=== PATIENT | female | born 1955 | race Caucasian/White ===

== ENCOUNTER 2018-12-12 06:05 | Inpatient (IN) ==
[2018-12-08 13:23] LABS: Appearance,Urine CLEAR; Bilirubin,Urine NEG (NEG); Color,Urine COLORLESS; Glucose,Urine (UA) NEGATIVE (NEG); Leukocyte Esterase,Urine NEG /uL (NEG); Protein,Urine NEG (NEG); Specific Gravity,Urine 1.004 (1.000-1.035); Urine Blood NEG mg/dL (<0.03); Urobilinogen,Urine NEG (NEG)
[2018-12-08 13:29] LABS: Blood Urea Nitrogen 12 mg/dl (8-23)
[2018-12-08 13:42] LABS: Estimated Average Glucose(eAG) 128 mg/dL; Hemoglobin A1C 6.1 % HGB (4.0-6.0)
[2018-12-08 13:49] LABS: Basophils # (Auto) 0.1 K/mcL (0.0-0.3); Basophils % (Auto) 1.2 % (0.0-2.0); Eosinophils # (Auto) 0.1 K/mcL (0.0-0.7); Eosinophils % (Auto) 2.3 % (0.0-7.0); Granulocytes % (Auto) 60.7 % (38.0-78.0); Lymphocytes # (Auto) 1.2 K/mcL (1.5-4.8); Lymphocytes % (Auto) 26.7 % (15.5-49.0); Mean Cell Volume 89.1 fL (80.0-100.0); Mean Corpuscular HGB Conc 33.5 g/dL (31.0-36.0); Monocytes # (Auto) 0.4 K/mcL (0.1-0.9); Monocytes % (Auto) 9.1 % (1.0-12.0); Platelet Count 271 K/mcL (140-440); RBC 5.06 M/mcL (4.00-5.20); Red Cell Distribution Width 14.3 % (11.5-14.5)
[~2018-12-12 06:05] MED LIST: ACETAMINOPHEN 500 MG TABLET PO SCH; PREGABALIN 75 MG CAPSULE PO SCH; ceFAZolin 2 GM in DEXTROSE 5% IN WATER 50 ML IV SCH; oxyCODONE 10 MG TAB.ER.12H PO SCH
[2018-12-12] MEDS ORDERED: GENTAMICIN SULFATE 800 MG/20 ML VIAL IR ONE (08:26)
[2018-12-12] MEDS ORDERED: ONDANSETRON 4 MG/2 ML VIAL IV ONE (09:05)
[2018-12-12] MEDS ORDERED: GLYCOPYRROLATE 0.2 MG/ML VIAL IV ONE (09:05)
[2018-12-12] MEDS ORDERED: LIDOCAINE HCL/PF 100 MG/5 ML SYRINGE IV ONE (09:05)
[2018-12-12] MEDS ORDERED: ROPIVACAINE HCL/PF 30 ML VIAL IJ ONE (09:05)
[2018-12-12] MEDS ORDERED: ePHEDrine 50 MG/ML AMPUL IV ONE (09:05)
[2018-12-12] MEDS ORDERED: SUGAMMADEX SODIUM 200 MG/2 ML VIAL IV ONE (09:05)
[2018-12-12] MEDS ORDERED: PROPOFOL 200 MG/20 ML VIAL IV ONE (09:05)
[2018-12-12] MEDS ORDERED: KETAMINE 100 MG/ML ML IV ONE (09:05)
[2018-12-12] MEDS ORDERED: DEXAMETHASONE 10 MG/ML VIAL IV ONE (09:05)
[2018-12-12] MEDS ORDERED: fentaNYL 100 MCG/2 ML VIAL IV ONE (09:05)
[2018-12-12] MEDS ORDERED: ROCURONIUM 10 MG/ML ML IV ONE (09:05)
[2018-12-12] MEDS ORDERED: MIDAZOLAM 5 MG/5 ML VIAL IV ONE (09:05)
[2018-12-12] MEDS ORDERED: PHENYLEPHRINE 10 MG/ML VIAL IV ONE (09:05)
[2018-12-12] MEDS ORDERED: KETOROLAC 15 MG/ML VIAL IV PRN ×2 (09:41→10:16)
[2018-12-12] MEDS ORDERED: FLUMAZENIL 0.1 MG/ML ML IV PRN (09:41)
[2018-12-12] MEDS ORDERED: fentaNYL 100 MCG/2 ML VIAL IV PRN (09:41)
[2018-12-12] MEDS ORDERED: METHOCARBAMOL 1,000 MG/10 ML VIAL IV PRN (09:41)
[2018-12-12] MEDS ORDERED: NALOXONE HCL 0.4 MG/ML VIAL IV PRN (09:41)
[2018-12-12] MEDS ORDERED: ONDANSETRON 4 MG/2 ML VIAL IV PRN ×2 (09:41→10:16)
[2018-12-12] MEDS ORDERED: BENZOCAINE/MENTHOL 1 LOZENGE PO PRN ×2 (09:41→10:16)
[2018-12-12] MEDS ORDERED: LACTATED RINGERS 250 ML IV PRN (09:41)
[2018-12-12] MEDS ORDERED: IPRATROPIUM/ALBUTEROL 3 ML AMPUL.NEB NEB PRN (09:41)
[2018-12-12] MEDS ORDERED: LACTATED RINGERS 1,000 ML IV SCH (09:45)
[2018-12-12] MEDS ORDERED: ACETAMINOPHEN 325 MG TABLET PO PRN (10:16)
[2018-12-12] MEDS ORDERED: TRANEXAMIC ACID 1,000 MG/10 ML VIAL IV ONE (10:16)
[2018-12-12] MEDS ORDERED: MAGNESIUM HYDROXIDE 30 ML ORAL.SUSP PO PRN (10:16)
[2018-12-12] MEDS ORDERED: BISACODYL 10 MG SUPP.RECT PR PRN (10:16)
[2018-12-12] MEDS ORDERED: POLYETHYLENE GLYCOL 3350 17 GM PACKET PO PRN (10:16)
[2018-12-12] MEDS ORDERED: TEMAZEPAM 15 MG CAPSULE PO PRN (10:16)
[2018-12-12] MEDS ORDERED: FLEETS ADULT ENEMA PR PRN (10:16)
--- NOTE | 2018-12-12 10:16 | Brief Operative Note ---
Date of procedure: 12/12/18 Pre-op diagnosis: right shoulder rca and bicep tendon tear Post-op diagnosis: same Procedure: Right reverse tsa and bicep tenodesis Grafts/Implants: Yes Anesthesia: GETA Complications: none Surgeon: Luis Shultz [employer] Seller: Ernesto Mendoza Estimated blood loss (cc): 100 Specimens Removed/Pathology: none sent Condition: stable Disposition: PACU
[2018-12-12] MEDS ORDERED: ALBUTEROL SULFATE 1 PUFF INHALER INH PRN (10:19)
[2018-12-12] MEDS ORDERED: cloNIDine HCL 0.1 MG TABLET PO PRN (10:19)
--- NOTE | 2018-12-12 11:17 | XRay Report ---
CLINICAL INFORMATION: Postsurgical follow-up TECHNIQUE: AP and Y view of the right shoulder COMPARISON: None. FINDINGS: Status post right reverse shoulder arthroplasty. Alignment is anatomic IMPRESSION: Status post reverse right shoulder arthroplasty Interpreted and Authenticated by: Fahad Hardy 12/12/18
--- NOTE | 2018-12-12 11:18 | Operative Note ---
DATE OF OPERATION: 12/12/2018 PREOPERATIVE DIAGNOSES: Right shoulder rotator cuff arthropathy and degenerative arthritis with biceps tendinopathy. POSTOPERATIVE DIAGNOSES: Right shoulder rotator cuff arthropathy and degenerative arthritis with biceps tendinopathy. PROCEDURE: Right reverse total shoulder and biceps tenodesis. SURGEON: Luis Shultz M.D. ARCHITECTURE CONSULTANT: Ernesto Mendoza PA-C. ANESTHESIA: General LMA anesthesia. COMPLICATIONS: None. DESCRIPTION OF PROCEDURE: The patient was brought to the operating room and put to sleep with general LMA anesthesia. Once asleep, the patient had the right shoulder sterilely prepped and draped in the usual sterile fashion. Once this was sterilely prepped and draped, a time-out performed and confirmed this as the operative site. Once we confirmed this as the operative site, we then placed Ioban over the skin and made our incision with a deltopectoral approach. We exposed the anterior capsule, released the subscap, and identified the biceps tendon remnant which was then released from the glenoid and then sutured into place on the pectoralis major. Two [id number] stitches on the pectoralis major and roughening of the bony bicipital groove was accomplished. Once done, we then released the remnants of the biceps tendon. We then subluxed the humeral head anteriorly, released the capsule around the anterior and inferior surface of the humeral head. We used a humeral guide at 20 degrees of retroversion and 135 degrees of angulation. Once done, we then were able to remove the bony fragments, subluxed the head posteriorly and then reamed. I exposed the joint. The glenoid was exposed. We released the capsule 360 degrees around the glenoid and then placed a central pin at 10 degrees of inclination. We reamed this up to the size 36, implanted the Metaglene with a 32 mm central screw, 32 mm superior screw, 20 mm anterior screw, and a 28 mm inferior screw. All had good purchase. The glenoid was well secured. The reaming accomplished bony bleeding up to about the 50% point of the glenoid. Once done, we then placed the glenosphere which was a 32 mm glenosphere with 2 mm of offset. Once done, we were able to then tap this into place and prepare the humeral stem. We broached up to a size 18 trial stem. This fit very nicely with good range of motion with a standard thickness poly. We then opened a size 11 stem. A small amount of cement was placed distally for early fixation, and this was tapped into place because of her bone quality. We then tapped into place a standard thickness poly for a 32 mm ball. This was put into place and gave excellent stability. It tracked well. We then irrigated, closed the deltopectoral interval, and closed the skin with 2-0 Vicryl and adhesive closure. The patient tolerated this well. RBH:jose Job ID: [id number] Doc ID: [id number] Luis Shultz MD
[2018-12-12] MEDS: 0.45 % SODIUM CHLORIDE 1,000 ML IV SCH ×2 (11:44→19:53)
[2018-12-12] MEDS: 0.9 % SODIUM CHLORIDE 10 ML SYRINGE IV SCH ×2 (13:41→20:16)
[2018-12-12] MEDS: oxyCODONE/APAP 5/325MG TABLET PO PRN ×3 (14:01→23:55)
[2018-12-12] MEDS: HYDROmorphone 2 MG/ML VIAL IV PRN ×3 (15:04→23:55)
[2018-12-12] MEDS: CYCLOBENZAPRINE 10 MG TABLET PO PRN (15:05)
[2018-12-12] MEDS: NICOTINE 21 MG PATCH TOPICAL SCH (16:25)
[2018-12-12] MEDS: ceFAZolin 1 GM VIAL IV SCH ×2 (16:25→23:54)
[2018-12-12] MEDS: metFORMIN 500 MG TABLET PO SCH (17:39)
[2018-12-12] MEDS: METOPROLOL TARTRATE 50 MG TABLET PO SCH (20:16)
[2018-12-12] MEDS: DOCUSATE SODIUM 100 MG CAPSULE PO SCH (20:16)
[2018-12-12] MEDS ORDERED: LOSARTAN 50 MG TABLET PO SCH (21:00)
[2018-12-12] MEDS ORDERED: amLODIPine 10 MG TABLET PO SCH (21:00)
[2018-12-12] MEDS ORDERED: SENNOSIDES 1 TABLET PO SCH (21:00)
[2018-12-12] MEDS ORDERED: traZODone HCL 100 MG TABLET PO SCH (21:00)
[2018-12-13] MEDS: HYDROmorphone 2 MG/ML VIAL IV PRN ×2 (02:13→07:01)
[2018-12-13] MEDS: 0.9 % SODIUM CHLORIDE 10 ML SYRINGE IV SCH (04:00)
[2018-12-13] MEDS: oxyCODONE/APAP 5/325MG TABLET PO PRN ×2 (04:03→08:03)
[2018-12-13] MEDS: 0.45 % SODIUM CHLORIDE 1,000 ML IV SCH (05:41)
[2018-12-13] MEDS: CYCLOBENZAPRINE 10 MG TABLET PO PRN (07:02)
[2018-12-13] MEDS: METOPROLOL TARTRATE 50 MG TABLET PO SCH (07:10)
[2018-12-13] MEDS: metFORMIN 500 MG TABLET PO SCH (07:28)
[2018-12-13] MEDS ORDERED: LEVOTHYROXINE 100 MCG TABLET PO SCH (07:30)
--- NOTE | 2018-12-13 07:30 | Orthopedic Progress Note ---
Subjective Patient information: Note initiated : 12/13/18 at 7:29 am Service Date, if different from initiated Date: [] Patient: Rosa Elena Nicholson 63 y/o F admitted on 12/12/18 for Right Reverse Total Shoulder Arthroplasty. Chief Complaint: [Pt is stable this morning on post operative day 1 without any significant concerns or complaints. Patients vital signs have remained stable. Patients dressing is dry and is grossly intact from a neurovas cular and motor standpoint. Patients 10 point ROS is otherwise negative. ] Objective Vital signs: Vital Signs Temp Pulse Resp BP Pulse Ox 12/13/18 06:47 97.0 F 67 16 188/90 96 12/13/18 06:38 100 12/13/18 04:00 97.4 F 66 16 168/80 97 12/13/18 00:00 98.9 F 73 16 148/80 95 12/12/18 20:00 98.2 F 70 20 146/75 91 12/12/18 16:31 98.6 F 70 20 142/80 94 12/12/18 13:30 63 151/77 94 12/12/18 12:59 57 L 138/70 93 12/12/18 12:31 53 L 163/82 93 12/12/18 12:15 55 L 155/77 92 12/12/18 12:00 53 L 157/70 92 12/12/18 11:45 52 L 18 142/73 94 12/12/18 11:30 166/80 91 12/12/18 11:15 97.0 F 57 L 20 159/85 95 12/12/18 11:00 97.3 F 65 15 166/82 96 12/12/18 10:45 97.2 F 59 L 20 182/83 96 12/12/18 10:40 55 L 18 177/88 94 12/12/18 10:35 57 L 20 138/66 94 12/12/18 10:30 97.0 F 56 L 21 149/70 94 12/12/18 10:28 97.0 F 57 L 16 159/78 94 Intake and Output 12/12/18 12/13/18 12/13/18 21:59 05:59 13:59 Intake Total 1200 1175 Output Total 950 1350 Balance 250 -175 Intake: Oral 1200 1175 Output: Void Amount 950 1350 Other: Meal Dinner Percent of Meal Consumed 100% Feeding Ability Independent Urine Appearance Clear Clear Urine Color Bright Yellow Bright Yellow # Voids 1 Weight 141 lb Intake & Output: Intake & Output 12/12/18 12/13/18 12/13/18 21:59 05:59 13:59 Intake Total 1200 1175 Output Total 950 1350 Balance 250 -175 Weight 141 lb Intake: Oral 1200 1175 Output: Void Amount 950 1350 Other: Meal Dinner Percent of Meal Consumed 100% Feeding Ability Independent Urine Appearance Clear Clear Urine Color Bright Yellow Bright Yellow # Voids 1 Incision: Yes healing Incision clean and dry: Yes Dressing: Yes clean Weight bearing status: full Neurological exam IM: Yes motor sensory intact, Yes neurovascular intact Extremities exam IM: Yes neurovascular intact - Labs CBC & BMP: 12/08/18 11:10 12/08/18 11:09 Labs: Orthopedic Labs 12/08/18 11:10 PT 12.5 INR 0.9 APTT 26 12/08/18 11:10 Hgb 15.1 H Hct 45.1 Assessment and Plan (1) History of reverse total replacement of right shoulder joint The patient has been educated regarding dressing care, Physical Therapy recommendations, home exercises, restrictions, and follow up appointments. The patient has had all necessary DME prescribed. The patient has remained relatively stable during their hospital course. Leave Dermabond patch intact until followup Status: Acute
--- NOTE | 2018-12-13 07:33 | Discharge Summary ---
Ortho Discharge - TSA - Patient Instructions Diet: Regular Diet Activity: activity as tolerated, weight bearing as tolerated Total Shoulder Protocol: Leave immobilizer in place except for bathing and ROM. Abduction pillow. Continue to wear sling until seen by physician. Codman Pendulum : These exercises use momentum produced by your body to move your shoulder joint. Bend your knees and shift your weight to your front leg, then back, allowing your arm to swing in the same directions. Using the same technique, alternately shift your weight between your right and left legs, allowing your arm to swing from side to side. These exercises are also performed in counterclockwise and clockwise circular motions. Typically these exercises are performed several times per day, for a set number repetitions or minutes, such as 20 times in a row or 5 minutes at a time. Dressing Care: May shower in 2 days - Problem Maintenance (1) History of reverse total replacement of right shoulder joint Status: Acute - Follow Up Plan Follow Up Appointments: Ernesto Mendoza PA-C [Physician Clinical Associate] - 12/27/18 10:40 am Disposition: Home, Self-Care Prognosis: Good Rehab Potential: Good I certify that the patient requires SNF services: No Overall status at discharge: patient is progressing back to baseline - Orders For Discharge Prescriptions: Docusate Sodium [Colace] 100 mg PO BID #60 cap oxyCODONE/APAP [Percocet 5-325 mg] 1 - 2 tab PO Q4HP PRN #75 tab PRN Reason: Pain Level 3-6
[2018-12-13] MEDS: DOCUSATE SODIUM 100 MG CAPSULE PO SCH (08:03)
[2018-12-13] MEDS ORDERED: CITALOPRAM 20 MG TABLET PO SCH (09:00)
[2018-12-13] MEDS: NICOTINE 21 MG PATCH TOPICAL SCH (09:29)
== END 2018-12-13 10:15 | disposition home or self-care (01) | DRG 483 ==
LOC: MEDSUR 06:05
PROVIDERS: ADMIT Orthopaedic Surgery; ATTEND Orthopaedic Surgery